=== PATIENT | male | born 1995 | race Caucasian/White ===

== ENCOUNTER → 2021-03-03 10:58 | Outpatient (BNVA) | payer MEDICAID, SELFPAY | PROVIDERS: PCP Internal Medicine; Visit Provider Orthopaedic Surgery | DX: M79.89 Other specified soft tissue disorders (principal) | CPT/HCPCS: 99202 ==

== ENCOUNTER 2021-04-02 09:13 | Day surgery (SDC) | payer MEDICAID, SELFPAY ==
[2021-03-26 15:26] VITALS: BMI 20.7
--- NOTE | 2021-04-01 09:16 | HO.ANESPROP2 ---
Documented by User: Cass Toribio 04/01/21 09:17 HPI - Anesthesia Eval Consult details Narrative: 26yo M for Right Ring Finger Mass Excision and Biopsy [facility] Active Problems Active Problems: All Active Problems (Updated 03/26/21 @ 15:26 by Madison Coronado) Mass of soft tissue of right upper extremity (Acute) Past Medical History Medical History Anxiety and depression Epilepsy Surgical History Surgical History History of exploratory laparotomy Social History Social History Are you DNR?: No Advance Directives: No Advance Directives Information Provided: No Advance Directives on File: No Recently lost weight without trying: No Eating poorly because of decreased appetite: No Nutrition Risks: No Nutritional Risk Current occupational status: disabled Current occupation: right hand Meds Allergies Allergy/AdvReac Type Severity Reaction Status Date / Time No Known Allergies Allergy Verified 03/26/21 15:11 [No Known Allergies*] Home Medications Medication Instructions Recorded Confirmed Last Taken Type buspirone 5 mg tablet 5 mg PO BID 03/03/21 03/26/21 Unknown History clobazam 10 mg tablet 10 mg PO DAILY 03/03/21 03/26/21 Unknown History divalproex 125 mg tablet,delayed 125 mg PO TID 03/03/21 03/26/21 Unknown History release escitalopram oxalate 5 mg tablet 5 mg PO DAILY 03/03/21 03/26/21 Unknown History lamotrigine 25 mg tablet 25 mg PO Q OTHER DAY 03/03/21 03/26/21 Unknown History Exam Exam Date and Time: April 01, 2021 0916 Height,Weight and Vital Signs: Height 5 ft 10 in Weight 65.771 kg Assessment and Plan Assessment Anesthesia Assessment: Chart Reviewed Documented by User: Candace Ybarra 04/02/21 12:34 [facility] Past Medical History Medical History Anxiety and depression Epilepsy Surgical History Surgical History History of exploratory laparotomy Social History Social History Are you DNR?: No Advance Directives: No Advance Directives Information Provided: No Advance Directives on File: No Recently lost weight without trying: No Eating poorly because of decreased appetite: No Nutrition Risks: No Nutritional Risk Current occupational status: disabled Current occupation: right hand Meds Allergies Allergy/AdvReac Type Severity Reaction Status Date / Time No Known Allergies Allergy Verified 03/26/21 15:11 [No Known Allergies*] Home Medications Medication Instructions Recorded Confirmed Last Taken Type buspirone 5 mg tablet 5 mg PO BID 03/03/21 03/26/21 Unknown History clobazam 10 mg tablet 10 mg PO DAILY 03/03/21 03/26/21 Unknown History divalproex 125 mg tablet,delayed 125 mg PO TID 03/03/21 03/26/21 Unknown History release escitalopram oxalate 5 mg tablet 5 mg PO DAILY 03/03/21 03/26/21 Unknown History lamotrigine 25 mg tablet 25 mg PO Q OTHER DAY 03/03/21 03/26/21 Unknown History Exam Airway Mallampati Class: I TM Dist: >3cm Neck ROM: Full Loose/Missing/Broken Teeth: No Heart: RRR Lungs: CTA Assessment and Plan Assessment Anesthesia Assessment: Anesthesia Plan Discussed and Chart Reviewed Final Anesthetic Review ASA Class: II Final Preanesthetic Review: Meds/Allgs Chart Reviewed, Consent Obtained/Reviewed and Anes Risks/Benef Reviewed Patient Risk: Low Procedure Risk: Low Anesthetic Plan Anesthetic Plan: GA Disposition: Standard PACU
[2021-04-02 09:51] VITALS: BP 113/59; PULSE 73; RESP 16; TEMP 36.7; O2SAT 98
[2021-04-02] MEDS: Lactated Ringers 1,000 ML 100 ML IVCONT (10:09)
--- NOTE | 2021-04-02 12:18 | MHC.SHP ---
Pre-Procedural Eval Section B Chief Complaint: soft tissue disorder Allergies: Allergies Allergy/AdvReac Type Severity Reaction Status Date / Time No Known Allergies Allergy Verified 03/26/21 15:11 [No Known Allergies*] Plan I have reviewed the history and physical and performed a pertinent physical examination on my patient. No changes have occurred unless specified.
--- NOTE | 2021-04-02 12:19 | W.PM.OPN ---
Operative Note Operative Note Date of Service: 04/02/21 Narrative: Operative Note Narrative: Preop diagnosis: Right ring finger soft tissue mass Postop diagnosis: Same Procedure: Right ring finger soft tissue mass excisional biopsy Surgeon: Kelsi Jackson MD Anesthesia: Mac plus regional block Findings: Mass measured approximately 1 cm in diameter was white shiny and filled with a gritty white material consistent with a epidermal inclusion cyst. Implants: None Tourniquet time: 9 minutes EBL: 5.0 ml Specimen: Right ring finger soft tissue mass sent for histopathology Drains: None Complications: None Disposition: Brought to the recovery room in stable condition Plan: Follow-up in 10-14 days for wound check, suture removal and to check pathology Indications: The patient is a 26-year-old man with a right ring finger soft tissue mass that has grown considerably in the last few months . The risks and benefits of operative treatment, including but not limited to risk of damage to blood vessels, nerves, tendons, infection, recurrence, persistent pain or numbness, incomplete resolution of preoperative symptoms, or need for further surgery were discussed with the patient and they wished to proceed with surgery. Procedure: Once consent was obtained patient was brought back to the operating suite and placed in the operating table in a supine position. . Perioperative antibiotics and anesthesia was administered by the anesthesia team. A tourniquet was applied to the proximal aspect of the right upper extremity and the limb was prepped and draped in a standard surgical fashion. The limb was elevated exsanguinated with Esmarch bandage and the tourniquet inflated to 250 mm of mercury for a total tourniquet time of 9 minutes. I made a Rich is incision over the volar aspect of the right ring finger middle phalanx and PIP joint. The incision was made through the skin to the subcutaneous tissues using a 15. Blade. I then carefully dissected down to the level of the soft tissue mass. It measured approximately 1 cm in diameter and was white and smooth and filled with a white gritty material. This was all consistent potentially with an epidermal inclusion cyst. I carefully dissected the mass free from the surrounding tissues and removed and placed on the back table to be sent for histopathology. At this point the tourniquet was deflated and hemostasis obtained with a brief period of local pressure The wound was copiously irrigated with normal saline. The skin edges were reapproximated with 5-0 nylon suture. A digital block was performed and the wound was infiltrated with some 1% lidocaine with epinephrine for postop pain control and a sterile dressing was applied. The patient appears to have tolerated the procedure well and with no complications. All digits were well vascularized conclusion of the case.
[2021-04-02 13:40] VITALS: BP 101/60; PULSE 58; RESP 16; TEMP 36.8; O2SAT 100
[2021-04-02 13:45] VITALS: BP 104/61; PULSE 60; RESP 16; O2SAT 100
[2021-04-02 13:50] VITALS: BP 103/59; PULSE 63; RESP 16; O2SAT 100
[2021-04-02 13:55] VITALS: BP 107/62; PULSE 75; RESP 16; O2SAT 99
[2021-04-02 14:27] VITALS: TEMP 36.8
== END 2021-04-02 14:52 | disposition home or self-care (01) ==
PROVIDERS: Visit Provider Orthopaedic Surgery
PROC: (CPT 11422; principal; 2021-04-02 11:00)
DX: L72.0 Epidermal cyst (principal); G40.909 Epilepsy, unspecified, not intractable, without status epilepticus; Z79.899 Other long term (current) drug therapy
CPT/HCPCS: 11422; 88304; J0690; J2250; J3010

== ENCOUNTER → 2021-04-13 10:02 | Outpatient (BNVA) | payer MEDICAID, SELFPAY | PROVIDERS: Visit Provider Orthopaedic Surgery | DX: M79.89 Other specified soft tissue disorders (principal) | CPT/HCPCS: 99212 ==

== ENCOUNTER → 2023-03-02 10:39 | Outpatient (BNVA) | payer MEDICAID, SELFPAY | PROVIDERS: Visit Provider Orthopaedic Surgery | DX: M79.89 Other specified soft tissue disorders (principal) | CPT/HCPCS: 99212 ==

== ENCOUNTER → 2023-03-31 05:54 | Day surgery (SDC) | payer MEDICAID, SELFPAY ==
[2023-03-25 19:56] VITALS: BMI 19.5
--- NOTE | 2023-03-30 08:45 | HO.ANESPROP2 ---
HPI - Anesthesia Eval Consult details Narrative: Utox + for PCP DOS. 28yo M for Right Ring finger Excision Mass s/p same 2020 with TIVA Multiple + tox screen [facility] Active Problems Active Problems: All Active Problems (Updated 03/26/21 @ 15:26 by Madison Coronado, RN) Mass of soft tissue of right upper extremity (Acute) Past Medical History Medical History Anxiety and depression Epilepsy Surgical History Surgical History History of exploratory laparotomy Social History Social History (Updated 03/02/23 @ 11:02 by Sierra Thorne Tamela) Patient Tobacco Use Status: Current everyday Tobacco user Tobacco use type: Cigarette Cigarette Packs Per Day: 0.5 Cigarettes Per Day: 10.0 Years Smoked: 13 Smoked in Last 30 Days: Yes Use of substances other than those prescribed or required for medical reasons: Yes Substance Use Type Other:: 2-3 TIMES DAILY Substance Use Frequency: Daily Are you DNR?: No Advance Directives: No Advance Directives Information Provided: Yes Advance Directives on File: No Recently lost weight without trying: No Nutrition Risks: No Nutritional Risk Current occupational status: disabled Current occupation: right hand Meds Allergies Allergy/AdvReac Type Severity Reaction Status Date / Time No Known Allergies Allergy Verified 03/31/23 06:08 [No Known Allergies*] Home Medications Medication Instructions Recorded Confirmed Last Taken Type buspirone 5 mg tablet 15 mg PO BID 03/03/21 03/25/23 03/31/23 05:30 History clobazam 10 mg tablet (Onfi) 10 mg PO BID 03/03/21 03/25/23 03/31/23 05:30 History hydroxyzine pamoate 25 mg capsule 25 mg PO BID PRN anxiety 03/02/23 03/25/23 Unknown History melatonin 5 mg tablet 5 mg PO BEDTIME 03/02/23 03/25/23 Unknown History sertraline 50 mg tablet 50 mg PO DAILY 03/02/23 03/25/23 Unknown History topiramate 50 mg tablet 50 mg PO BID 03/02/23 03/25/23 03/31/23 05:30 History divalproex 500 mg tablet,extended 1,000 mg PO QAM 03/25/23 03/25/2303/31/23 05:30 History release 24 hr Exam Exam Date and Time: March 30, 2023 0845 Height,Weight and Vital Signs: Height 5 ft 10 in Weight 61.689 kg Assessment and Plan Assessment Anesthesia Assessment: Chart Reviewed
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
--- OUTSIDE RECORDS SUMMARY | 2023-03-31 05:56 | XMS_ITS | Continuity of Care Document ---
Author Name Unknown Organization [facility] Address [address] [facility], [address] Floor, [address] [place] [address]- Care Team Providers Care Brass And Wind Instrument Repairer Name Role Phone Randy STEPHEN, Akash Primary Care Physician [phone] En[place] [facility] [place] 02/18/23 - 03/20/23 [facility] [address], [address], [address] [place] [id number] Allergies, Adverse Reactions, Alerts No Known Allergies [...] tablet, 3 Refills, Maintenance, 05/28/22 13:24:00 EDT, [facility] #[id number], 175, cm, 11/16/21 10:25:00 EST, Height Start [...] tablet, 5 Refills, Maintenance, 03/17/23 14:35:00 EDT, [facility] #[id number], dose increase, 175, cm, 01/10/23 11:06:00 EST, Height, 62, kg, 03/11/23 10:43:00 EDT, Dry Weight Start Date: 03/17/23 Stop Date: 09/13/23 Status: Ordered divalproex sodium 500 mg oral tablet, extended release 2 tablet, By Mouth, Daily in AM, # 180 tablet, 5 Refills, Maintenance, 09/29/22 10:01:00 EDT, [facility] #[id number], 175, cm, 07/28/22 10:23:00 EDT, Height Start [...] each, 0 Refills, Maintenance, 01/10/23 12:21:00 EST, [facility] #[id number], ok to sub for any gallon prep, [...] 11 Refills, Maintenance, 10/15/22 12:41:00 EST, Tablet, [facility] #[id number], 175, cm, 07/28/22 10:23:00 EDT, Height Start [...] Team Personnel Name: Kimo Batres MD Position: [facility] Psychiatry MD Member Role: Lifetime Consulting Physician Address: Address: [address] [place] [id number]- Name: Akash Padilla MD Position: [facility] Outreach Member Role: PCP Address: Address: [address] [place] [address]- Name: Carolyn Ferrara RN Position: [facility] AMB Nurse Member Role: Primary Care Nurse Care Team Related Persons Name: ROBBIE ST Address: [address] [address] Name: SMITHA BRAXTON Address: [address] [address] Name: LESTER FELTON
--- OUTSIDE RECORDS SUMMARY | 2023-03-31 05:56 | XMS_ITS | Continuity of Care Document ---
Author Name Unknown Organization [facility] Address [address] [facility], [address] Floor, [address] [place] [address]- Care Team Providers Care Jack Strip Assembler Name Role Phone Randy STEPHEN, Akash Primary Care Physician [phone] [place] [facility] [place] [facility] [address], [address], [address] [place] [id number] Allergies, Adverse Reactions, Alerts No Known Allergies [...] tablet, 3 Refills, Maintenance, 05/28/22 13:24:00 EDT, [facility] #[id number], 175, cm, 11/16/21 10:25:00 EST, Height Start [...] tablet, 5 Refills, Maintenance, 03/17/23 14:35:00 EDT, [facility] #[id number], dose increase, 175, cm, 01/10/23 11:06:00 EST, Height, 62, kg, 03/11/23 10:43:00 EDT, Dry Weight Start Date: 03/17/23 Stop Date: 09/13/23 Status: Ordered divalproex sodium 500 mg oral tablet, extended release 2 tablet, By Mouth, Daily in AM, # 180 tablet, 5 Refills, Maintenance, 09/29/22 10:01:00 EDT, [facility] #[id number], 175, cm, 07/28/22 10:23:00 EDT, Height Start [...] each, 0 Refills, Maintenance, 01/10/23 12:21:00 EST, [facility] #[id number], ok to sub for any gallon prep, [...] 10/15/22 12:41:00 EST, Tablet, [facility] #[id number], 175, cm, 07/28/22 10:23:00 EDT, Height Start [...] Team Personnel Name: Kimo Batres MD Position: [facility] Psychiatry MD Member Role: Lifetime Consulting Physician Address: Address: [address] [place] [address]- Name: Akash Padilla MD Position: [facility] Outreach Member Role: PCP Address: Address: [address] [place] [address]- Name: Carolyn Ferrara RN Position: [facility] AMB Nurse Member Role: Primary Care Nurse Care Team Related Persons Name: ROBBIE ST Address: home [address] [address] Name: SMITHA BRAXTON Address: home [address] [address] Name: LESTER FELTON
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
[2023-03-31 06:25] VITALS: BP 112/54; PULSE 68; RESP 15; TEMP 36.7; O2SAT 99
[2023-03-31 06:38] LABS: Amphetamine Screen Urine Not Detected (Not Detect); Barbiturates, Urine Not Detected (Not Detect); Benzodiazepines Screen Urine POSITIVE (Not Detect); Cannabinoid Screen Urine POSITIVE (Not Detect); Cocaine Screen Urine Not Detected (Not Detect); Fentanyl, urine Not Detected (Not Detect); Opiate Screen Urine Not Detected (Not Detect); Phencyclidine Screen Urine POSITIVE (Not Detect)
[2023-03-31] MEDS: Lactated Ringers 1,000 ML 100 ML IVCONT (06:42)
--- NOTE | 2023-03-31 08:05 | PC.NURSE ---
pcp found in urine tox. surgery cancelled by surgeon and anesthesia at bedside. to call office to reschedule.
== END ==
PROVIDERS: Nurse Practitioner; PCP Pediatrics; Visit Provider Orthopaedic Surgery
DX: M79.89 Other specified soft tissue disorders (principal); Z53.09 Procedure and treatment not carried out because of other contraindication; R82.5 Elevated urine levels of drugs, medicaments and biological substances
CPT/HCPCS: 80307; J0690; J2795

== ENCOUNTER → 2023-05-17 15:18 | Outpatient (BNVA) | payer MEDICAID, SELFPAY | PROVIDERS: PCP Pediatrics; Visit Provider Orthopaedic Surgery | DX: M79.89 Other specified soft tissue disorders (principal) | CPT/HCPCS: 99212 ==

== ENCOUNTER 2023-05-19 06:12 | Day surgery (SDC) | payer MEDICAID, SELFPAY ==
--- NOTE | 2023-05-17 14:50 | HO.ANESPROP2 ---
Documented by User: Cass Toribio NP 05/17/23 14:51 HPI - Anesthesia Eval Consult details Narrative: 28yo M for Right Ring finger Excision Mass s/p same 2020 with TIVA Multiple + tox screen, Utox + for PCP DOS. PMFSH Active Problems Active Problems: All Active Problems (Updated 05/13/23 @ 14:45 by Madison Coronado RN) Mass of soft tissue of right upper extremity (Acute) Past Medical History Medical History Anxiety and depression Epilepsy History of tremor Weight loss Surgical History Surgical History History of excision of mass History of exploratory laparotomy Social History Social History Patient Tobacco Use Status: Current everyday Tobacco user Tobacco use type: Cigarette and Smokeless Tobacco Cigarette Packs Per Day: 0.5 Cigarettes Per Day: 10.0 Years Smoked: 13 Second Hand Smoke Exposure: No Use of substances other than those prescribed or required for medical reasons: Yes Substance Use Frequency: Daily Are you DNR?: No Advance Directives: No Advance Directives Information Provided: Yes Advance Directives on File: No Current occupational status: disabled Current occupation: right hand Meds Allergies Allergy/AdvReac Type Severity Reaction Status Date / Time No Known Allergies Allergy Verified 05/17/23 15:44 [No Known Allergies*] Home Medications Medication Instructions Recorded Confirmed Last Taken Type clobazam 10 mg tablet (Onfi) 10 mg PO BID 03/03/21 05/13/23 05/19/23 History hydroxyzine pamoate 25 mg capsule 25 mg PO BID PRN anxiety 03/02/23 05/13/23 Unknown History melatonin 5 mg tablet 5 mg PO BEDTIME 03/02/23 05/13/23 Unknown History sertraline 50 mg tablet 50 mg PO DAILY 03/02/23 05/13/23 05/19/23 History topiramate 50 mg tablet 50 mg PO BID 03/02/23 05/13/23 05/19/23 History divalproex 500 mg tablet,extended 1,000 mg PO QAM 03/25/23 05/13/23 05/19/23 History release 24 hr buspirone 15 mg tablet 15 mg PO TID 05/13/23 05/13/23 05/19/23 History Exam Exam Date and Time: May 17, 2023 1450 Assessment and Plan Assessment Anesthesia Assessment: Chart Reviewed Documented by User: Briseida Gonzales MD 05/19/23 08:47 PMFSH Past Medical History Medical History Anxiety and depression Epilepsy History of tremor Weight loss Family History Family history of problems with anesthesia: No Surgical History Surgical History History of excision of mass History of exploratory laparotomy History of Problems with Anesthesia: No Social History Social History Patient Tobacco Use Status: Current everyday Tobacco user Tobacco use type: Cigarette and Smokeless Tobacco Cigarette Packs Per Day: 0.5 Cigarettes Per Day: 10.0 Years Smoked: 13 Second Hand Smoke Exposure: No Use of substances other than those prescribed or required for medical reasons: Yes Substance Use Frequency: Daily Are you DNR?: No Advance Directives: No Advance Directives Information Provided: Yes Advance Directives on File: No Current occupational status: disabled Current occupation: right hand Meds Allergies Allergy/AdvReac Type Severity Reaction Status Date / Time No Known Allergies Allergy Verified 05/17/23 15:44 [No Known Allergies*] Home Medications Medication Instructions Recorded Confirmed Last Taken Type clobazam 10 mg tablet (Onfi) 10 mg PO BID 03/03/21 05/13/23 05/19/23 History hydroxyzine pamoate 25 mg capsule 25 mg PO BID PRN anxiety 03/02/23 05/13/23 Unknown History melatonin 5 mg tablet 5 mg PO BEDTIME 03/02/23 05/13/23 Unknown History sertraline 50 mg tablet 50 mg PO DAILY 03/02/23 05/13/23 05/19/23 History topiramate 50 mg tablet 50 mg PO BID 03/02/23 05/13/23 05/19/23 History divalproex 500 mg tablet,extended 1,000 mg PO QAM 03/25/23 05/13/23 05/19/23 History release 24 hr buspirone 15 mg tablet 15 mg PO TID 05/13/23 05/13/23 05/19/23 History Exam Airway Mallampati Class: II TM Dist: >3cm Neck ROM: Full Heart: rrr Lungs: cta Other: pt appears a little sedated, daily cigarettes and marihuana and alchohol use since age 14 per his report Assessment and Plan Final Anesthetic Review Family History of Problems with Anesthesia: No History of Problems with Anesthesia: No NPO: Yes ASA Class: II Final Preanesthetic Review: No Changes in Pt Med Stat, Meds/Allgs Chart Reviewed, Consent Obtained/Reviewed and Anes Risks/Benef Reviewed Patient Risk: Intermediate Procedure Risk: Low Anesthetic Plan Anesthetic Plan: GA Disposition: Standard PACU
[2023-05-19 06:27] VITALS: BMI 19.5
[2023-05-19 06:39] VITALS: BP 104/62; PULSE 69; RESP 16; TEMP 36.2; O2SAT 98
[2023-05-19 06:45] LABS: Amphetamine Screen Urine Not Detected (Not Detect); Barbiturates, Urine Not Detected (Not Detect); Benzodiazepines Screen Urine POSITIVE (Not Detect); Cannabinoid Screen Urine POSITIVE (Not Detect); Cocaine Screen Urine Not Detected (Not Detect); Fentanyl, urine Not Detected (Not Detect); Opiate Screen Urine Not Detected (Not Detect); Phencyclidine Screen Urine Not Detected (Not Detect)
[2023-05-19] MEDS: Lactated Ringers 1,000 ML 100 ML IVCONT (07:01)
[2023-05-19 08:45] VITALS: BP 127/60; PULSE 92; RESP 17; TEMP 36.6; O2SAT 100
[2023-05-19 08:50] VITALS: BP 114/29; PULSE 82; RESP 18; O2SAT 98
[2023-05-19 08:55] VITALS: BP 121/55; PULSE 75; RESP 16; O2SAT 98
[2023-05-19 09:00] VITALS: BP 128/69; PULSE 88; RESP 16; O2SAT 98
--- NOTE | 2023-05-19 09:11 | MHC.SHP ---
Pre-Procedural Eval Section A Date of Service: 05/19/23 The patient is an INPATIENT: No Changes since office visit: No Cold of Flu in the past 2 weeks, No New Medical Problems, No Changes in Medication and No Patient answered all questions The History & Physical has been completed within 30 days and I have reviewed it.: Yes Section B Chief Complaint: Finger mass, right Allergies: Allergies Allergy/AdvReac Type Severity Reaction Status Date / Time No Known Allergies Allergy Verified 05/17/23 15:44 [No Known Allergies*] Plan I have reviewed the history and physical and performed a pertinent physical examination on my patient. No changes have occurred unless specified. Time Spent With Patient Time: Total time managing care of this patient today ____ minutes.
--- NOTE | 2023-05-19 09:11 | W.PM.OPN ---
Operative Note Operative Note Date of Service: 05/19/23 Narrative: Operative Note Narrative: Preop diagnosis: 1. Right ring finger soft tissue mass Postop diagnosis: Same Procedure: 1. Right ring finger soft tissue mass excisional biopsy Surgeon: Kelsi Jackson MD Anesthesia: General Anesthesia Findings: a 9 mm diameter white Spherical soft tissue mass was removed from its attachment on to the right ring finger flexor tendon sheath at about the A4 pham level. Implants: none Tourniquet time: 9 minutes EBL: 5.0 ml Specimen: right ring finger mass to histopathology Drains: None Complications: None Disposition: Brought to the recovery room in stable condition Plan: Follow-up in 10-14 days for wound check, suture removal and to check pathology Indications: The patient is a 28 year old man with a right ring finger volar soft tissue mass . The risks and benefits of operative treatment, including but not limited to risk of damage to blood vessels, nerves, tendons, infection, recurrence, persistent pain or numbness, incomplete resolution of preoperative symptoms, or need for further surgery were discussed with the patient and they wished to proceed with surgery. Procedure: Once consent was obtained patient was brought back to the operating suite and placed in the operating table in a supine position. . Perioperative antibiotics and anesthesia was administered by the anesthesia team. A tourniquet was applied to the proximal aspect of the right upper extremity and the limb was prepped and draped in a standard surgical fashion. The limb was elevated exsanguinated with Esmarch bandage and the tourniquet inflated to 250 mm of mercury for a total tourniquet time of 9 minutes. a 1 cm diagonal incision was made over the right ring finger over the volar aspect of the middle phalanx centered over the soft tissue mass. Incision was made through the skin the subcutaneous tissues. Then carefully dissected down to the mass which was approximately 9 mm in diameter spherical and white. It was attached to the flexor tendon sheath at the A4 pham level. The neurovascular bundles were protected and I carefully dissected the mass free from the A4 pham of the flexor tendon sheath. The mass was carefully dissected free from the A4 pham and placed on the back table to be sent for histopathology. At this point the tourniquet was deflated and hemostasis obtained with a brief period of local pressure and bipolar electrocautery. The Wound was copiously irrigated with normal saline. The skin edges were reapproximated with some 5 0 Prolene suture material and a sterile dressing was applied. The patient appears to have tolerated procedure well no complications. All digits were well vascularized the conclusion of the case.
[2023-05-19 09:15] VITALS: BP 110/64; PULSE 75; RESP 16; TEMP 36.6; O2SAT 100
== END 2023-05-19 09:47 | disposition home or self-care (01) ==
PROVIDERS: Nurse Practitioner; PCP Pediatrics; Visit Provider Orthopaedic Surgery
PROC: (CPT 11421; principal; 2023-05-19 07:30)
DX: M79.89 Other specified soft tissue disorders (principal); L72.0 Epidermal cyst; R82.5 Elevated urine levels of drugs, medicaments and biological substances; G40.909 Epilepsy, unspecified, not intractable, without status epilepticus; F41.8 Other specified anxiety disorders; Z79.899 Other long term (current) drug therapy; F12.90 Cannabis use, unspecified, uncomplicated; F17.290 Nicotine dependence, other tobacco product, uncomplicated; F17.210 Nicotine dependence, cigarettes, uncomplicated
CPT/HCPCS: 11421; 80307; 88304; J0690; J1100; J2250; J2405; J2795; J3010

== ENCOUNTER → 2023-06-01 14:24 | Outpatient (BNVA) | payer MEDICAID, SELFPAY | PROVIDERS: PCP Registered Nurse; Visit Provider Orthopaedic Surgery ==

== ENCOUNTER 2023-09-30 14:38 | Outpatient (REF) | payer MEDICAID, SELFPAY ==
[2023-09-30 16:23] LABS: Alanine Aminotransferase 8 U/L (0-40); Albumin Level 4.5 g/dL (3.5-5.0); Alkaline Phosphatase 38 U/L (39-117); Aspartate Amino Transferase 11 U/L (5-37); Bilirubin Direct 0.2 mg/dL (0.0-0.5); Bilirubin Total 0.4 mg/dL (0.0-1.0); Total Protein 7.3 g/dL (6.5-8.0)
[2023-10-04 07:39] LABS: Topiramate 11.1 mcg/mL (see note)
[2023-10-04 10:09] LABS: Triiodothyronine T3 Reverse 13 ng/dL (8-25)
== END 2023-09-30 14:39 | disposition home or self-care (01) ==
LOC: HO.LAB 14:38
PROVIDERS: PCP Registered Nurse; Visit Provider Psychiatry & Neurology Neurology
DX: G40.909 Epilepsy, unspecified, not intractable, without status epilepticus (principal)
CPT/HCPCS: 36415; 80076; 80164; 80201; 84436; 84482

== ENCOUNTER 2023-11-22 11:44 | Outpatient (REF) | payer MEDICAID, SELFPAY ==
[2023-11-22 14:27] LABS: Vitamin D 25-OH Total 12.4 ng/mL (>30)
[2023-11-22 14:46] LABS: CT PCR NOT DETECTED (Not Detect.); NG PCR NOT DETECTED (Not Detect.)
[2023-11-22 14:57] LABS: Syphilis Screen Nonreactive (Nonreactive)
[2023-11-23 08:09] LABS: HBc Num1 0.13 S/CO (0.00-0.79); HBsAGNum1 0.27 S/CO (0.00-0.99); HIV AB/AG Nonreactive (Nonreactive); HIV Num 1 0.08 S/CO (0.00-0.99); Hepatitis B Core Antibody Nonreactive (Nonreactive); Hepatitis B Surface Antigen Negative (Negative); ~HepC Num1 0.14 S/CO (0.00-0.79); ~Hepatitis B Surface Antibody REACTIVE (Nonreactive); ~Hepatitis C Antibody Nonreactive (Nonreactive)
== END 2023-11-22 11:45 | disposition home or self-care (01) ==
LOC: HO.HHCL 11:44
PROVIDERS: Visit Provider Family Medicine
DX: Z11.3 Encounter for screening for infections with a predominantly sexual mode of transmission (principal); Z11.4 Encounter for screening for human immunodeficiency virus [HIV]; E55.9 Vitamin D deficiency, unspecified
CPT/HCPCS: 0353U; 36415; 82306; 86704; 86706; 86780; 86803; 87340; 87389

== ENCOUNTER 2024-05-13 19:46 | Emergency (ER) | payer MEDICAID, SELFPAY ==
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
[2024-05-13 19:49] VITALS: BP 132/56; PULSE 85; RESP 20; TEMP 36.6; O2SAT 100; BMI 19.0
--- NOTE | 2024-05-13 19:49 | ED.LOWEXIN ---
HPI - Extremity Injury (Lower) General Chief Complaint: Extremity Injury, Lower Stated Complaint: right foot injury/basketball Time Seen by Provider: 05/13/24 19:55 Source: patient Mode of arrival: ambulatory Limitations: no limitations History of Present Illness ED Provider: Dr. Carolyn Fuller HPI Narrative: patient comes to the emergency room complaining of right-sided foot pain on the dorsum. Patient states that 5 days ago, patient was jumping up to grab a ball while playing basketball, patient states that when he landed, his foot bent awkwardly, it was the foot itself not the ankle. Since then patient has been putting weight on it, walking but still hurts. Patient has been taking ibuprofen intermittently. Related Data Home Medications ?Medication ?Instructions ?Recorded ?Confirmed clobazam 10 mg tablet (Onfi) 10 mg PO BID 03/03/21 05/13/23 hydroxyzine pamoate 25 mg capsule 25 mg PO BID PRN anxiety 03/02/23 05/13/23 melatonin 5 mg tablet 5 mg PO BEDTIME 03/02/23 05/13/23 sertraline 50 mg tablet 50 mg PO DAILY 03/02/23 05/13/23 topiramate 50 mg tablet 50 mg PO BID 03/02/23 05/13/23 divalproex 500 mg tablet,extended 1,000 mg PO QAM 03/25/23 05/13/23 release 24 hr buspirone 15 mg tablet 15 mg PO TID 05/13/23 05/13/23 Previous Rx's ?Medication ?Instructions ?Recorded hydrocodone 5 mg-acetaminophen 325 1 tab PO Q4-6H PRN pain #5 tabs 05/19/23 mg tablet Allergies Allergy/AdvReac Type Severity Reaction Status Date / Time No Known Allergies Allergy Verified 05/13/24 19:51 [No Known Allergies*] Review of Systems Review of Systems: Constitutional : No Weight loss, No Fever, No Chills, No Night Sweats, No Fatigue, No Malaise ENT/Mouth : No Hearing loss, No Ear Pain, No Nasal Congestion, No Sinus Pain, No Hoarseness, No sore throat, No Rhinorrhea, No Swallowing Difficulty Eyes: No Eye Pain, No Swelling, No Redness, No Foreign Body, No Discharge, No Vision Changes Cardiovascular : No Chest Pain, No SOB, No Dyspnea on Exertion, No Orthopnea, No Edema, No Palpitations Respiratory : No Cough, No Sputum, No Wheezing, No Smoke Exposure, No Dyspnea Gastrointestinal : No Nausea, No Vomiting, No Diarrhea, No Constipation, No abdominal Pain, No Hematochezia, No Melena Genitourinary : no irregular bleeding, No Dysuria, No Urinary Frequency, No Hematuria, No Urinary Incontinence, No Urgency, No Flank Pain, No Urinary Flow Changes, No Hesitancy Musculoskeletal : Complaining of right foot pain No Myalgias, No Joint Swelling Skin : No Skin Lesions, No rash Neuro : No Weakness, No Numbness, No Paresthesias, No Loss of Consciousness, No Dizziness, No Headache Psych : No Anxiety/Panic, No Depression, No SI/HI/AH/VH, No Social Issues, Heme/Lymph: No Bruising, No Bleeding,No Lymphadenopathy Endocrine : No Polyuria, No Polydipsia, No Temperature Intolerance PMF Past Medical History Medical History Weight loss History of tremor Anxiety and depression Epilepsy Surgical History History of excision of mass History of exploratory laparotomy Social History Social History Patient Tobacco Use Status: Current everyday Tobacco user Tobacco use type: Cigarette and Smokeless Tobacco Cigarette Packs Per Day: 0.5 Cigarettes Per Day: 10.0 Years Smoked: 13 Smoked in Last 30 Days: Yes Second Hand Smoke Exposure: No Use of substances other than those prescribed or required for medical reasons: No Advance Directives: No Advance Directives Information Provided: No Do you have a plan to hurt others: No Plan Current occupational status: disabled Current occupation: right hand Physical Exam Vital Signs: Vital Signs: Last Vital Signs Temp 97.9 F 05/13/24 19:49 Pulse 85 05/13/24 19:49 Resp 20 05/13/24 19:49 BP 132/56 L 05/13/24 19:49 Pulse Ox 100 05/13/24 19:49 O2 Del Method Room Air 05/13/24 19:49 BMI result Body Mass Index 19.0 Const: Other: Appearance: Alert. Oriented X3. No acute distress. Eyes: Pupils equal, round and reactive to light. ENT: Pharynx normal. Neck: Normal inspection. Neck supple. No lymph nodes noted. No crepitus CVS: Normal heart rate and rhythm. Pulses normal. Normal S1 and S2 Respiratory: No respiratory distress. Breath sounds normal. No Wheezing. No rales Abdomen: Soft and nontender. No rigidity. No distention. Skin: Skin warm and dry. Normal skin color. Normal skin turgor. Extremities: No lower extremity edema. No Lacerations. No Rash no swelling around the ankle, pain to palpation over the dorsum of the foot, patient ambulatory with fairly stable gait. No ecchymosis, no obvious deformity Neuro: Oriented X 3. No motor deficit. No sensory deficit. Moving all extremities. No slurred speech. CN 2 through 12 grossly intact Psych: calm, cooperative, normal affect Course Course Course Narrative: This is a Rapid Medical Examination (RME) performed by Herbert Salazar PA-C in triage. Full HPI, ROS, assessment and treatment plan per primary provider in the Main ED. 29 yo male here for eval of right foot and ankle pain s/p injury while playing basketball in [place] 5 days ago. reports jumping and on landing, his toes folded under his foot. reports continued pain to the top of his foot and ankle. has been taking motrin and using icy hot with minimal relief. noted swelling to dorsal aspect of right foot and ankle. no overlying skin changes. no obvious deformity. 2+ p/dp pulses. Plan: xrs Medical Decision Making Medical Decision Making [facility] Narrative: - patient ambulatory - my interpretation of x-ray: No acute fracture or dislocation - x-rays of the foot : no fracture Differential Diagnosis Differential Diagnoses: The differential diagnosis associated with the presentation includes ( ankle contusion, dislocation, fracture, sprain) Independent Interpretation I performed an independent interpretation of an: Plain X-Ray Radiology Impression Discussion of test interpretation with radiology: I have reviewed the radiologist's reading. Radiologist Impression: Negative radiographs of the right ankle and foot. Discharge Plan Discharge Clinical Impression: Ankle sprain Patient Disposition: Home, Self-Care Instructions: Ankle Sprain (ED) Additional Instructions: Please follow-up with your primary care physician tomorrow. If you have any worsening or new symptoms, please return to the emergency room or call 911 Prescriptions: No Action divalproex 500 mg tablet extended release 24 hr 1,000 mg PO QAM buspirone 15 mg tablet 15 mg PO TID hydrocodone-acetaminophen 5-325 mg tablet 1 tab PO Q4-6H PRN (Reason: pain) Qty: 5 0RF Rx Instructions: Partial Fill upon patient request. clobazam [Onfi] 10 mg tablet 10 mg PO BID sertraline 50 mg tablet 50 mg PO DAILY topiramate 50 mg tablet 50 mg PO BID melatonin 5 mg tablet 5 mg PO BEDTIME hydroxyzine pamoate 25 mg capsule 25 mg PO BID PRN (Reason: anxiety) Print Language: Slovak
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
--- OUTSIDE RECORDS SUMMARY | 2024-05-13 20:27 | XMS_ITS | Continuity of Care Document ---
Author Organization [facility] Address [address] [place] [address]- Care Team Providers Care Quality Assurance Supervisor Final Name Role Phone Akash Padilla MD Primary Care Physician Encounter [facility] [place] Date(s): 07/21/23 - 08/20/23 [facility] [address] [place] [id number]- Attending Physician: Miguel Piña Admitting Physician: Miguel Piña Referring Physician: AdmtrMiguel Allergies, Adverse Reactions, Alerts No Known Allergies Immunizations Given and Recorded Vaccine Date Status Refusal Reason pneumococcal 23-valent vaccine 12/24/15 Given influenza virus vaccine, inactivated 12/24/15 Give n Medications Ativan 1 mg oral tablet See Instructions, 1 tablet By Mouth prn for seizure. MassPat checked, # 12 tablet, 3 Refills, Maintenance, 05/28/22 13:24:00 EDT, [facility] #[id number], 175, cm, 11/16/21 10:25:00 EST, Height Start [...] day, # 120 tablet, 5 Refills, Maintenance, 07/12/23 10:36:00 EDT, [facility] #[id number], dose increase, 175, cm, 01/10/23 11:06:00 EST, Height, 62, kg, 03/11/23 10:43:00 EDT, Dry Weight Start Date: 07/12/23 Stop Date: 01/08/24 Status: Ordered divalproex sodium 500 mg oral tablet, extended release 2 tablet, By Mouth, Daily in AM, # 180 tablet, 5 Refills, Maintenance, 07/12/23 10:36:00 EDT, [facility] #[id number], 175, cm, 01/10/23 11:06:00 EST, Height, 62, kg, 03/11/23 10:43:00 EDT, Dry Weight Start Date: 07/12/23 Stop Date: 01/02/25 Status: Ordered Ensure Nutritional Drink Ensure Nutritional [...] each, 0 Refills, Maintenance, 01/10/23 12:21:00 EST, [facility] #[id number], ok to sub for any gallon prep, [...] day, # 180 tablet, 5 Refills, Maintenance, 07/12/23 10:36:00EDT, Tablet, [facility] #[id number], dose increase, 175, cm, 01/10/23 11:06:00 EST, Height, 62, kg, 03/11/23 10:43:00 EDT, Dry Weight Start Date: 07/12/23 Status: Ordered Problem List Condition Confirmation Course [...] Name: Kimo Batres MD Position: [facility] Physician - Behavioral Health Member Role: Lifetime Consulting Physician Address: Address: [address] [place] [id number]- Name: Akash Padilla MD Position: [facility] Outreach Member Role: PCP Address: Address: [address] [place] [address]- Name: Carolyn Ferrara RN Position: [facility] AMB Nurse Member Role: Primary Care Nurse Care Team Related Persons Name: ROBBIE ST Address: [address] [address] Name: SMITHA BRAXTON Address: home [address] [address] Name: LESTER FELTON
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
--- OUTSIDE RECORDS SUMMARY | 2024-05-13 20:28 | XMS_ITS | Continuity of Care Document ---
Author Organization [facility] Address [address] [facility], [address] d Floor, [address] [place] [address]- Care Team Providers Care Molded Rubber Goods Cutter Name Role Phone Randy STEPHEN, Akash Primary Care Physician Encounter [facility] Date(s): 10/27/23 - 11/26/23 [facility] [address], [address], [address] [place] [address]- Referring Physician: Feroz STEPHEN , Shyann Allergies, Adverse Reactions, Alerts No Known Allergies Immunizations Given and Recorded Vaccine Date Status Refusal Reason pneumococcal 23-valent vaccine 12/24/15 Given influenza virus vaccine, inactivated 12/24/15 Give n Medications Ativan 1 mg oral tablet See Instructions, 1 tablet By Mouth prn for seizure. MassPat checked, # 12 tablet, 3 Refills, Maintenance, 05/28/22 13:24:00 EDT, [facility] #[id number], 175, cm, 11/16/21 10:25:00 EST, Height Start [...] tablet, 5 Refills, Maintenance, 10/27/23 15:36:00 EST, [facility] #[id number], 175, cm, 07/21/23 11:33:00 EDT, Height, 62, kg, 03/11/23 10:43:00 EDT, Dry Weight Start Date: 10/27/23 Stop Date: 04/24/24 Status: Ordered divalproex sodium 500 mg oral tablet, extended release 2 tablet, By Mouth, Daily in AM, # 180 tablet, 5 Refills, Maintenance, 07/12/23 10:36:00 EDT, [facility] #[id number], 175, cm, 01/10/23 11:06:00 EST, Height, 62, [...] each, 0 Refills, Maintenance, 01/10/23 12:21:00 EST, [facility] #[id number], ok to sub for any gallon prep, [...] Maintenance, 07/12/23 10:36:00EDT, Tablet, [facility] #[id number], dose increase, 175, cm, 01/10/23 11:06:00 EST, [...] Team Personnel Name: Kimo Batres MD Position: [facility] Physician - Behavioral Health Member Role: Lifetime Consulting Physician Address: Address: [address] [place] [address]- Name: Akash Padilla MD Position: [facility] Outreach Member Role: PCP Address: Address: [address] [place] [address]- Name: Carolyn Ferrara RN Position: [facility] AMB Nurse Member Role: Primary Care Nurse Care Team Related Persons Name: ROBBIE ST Address: home [address] [address] Name: SMITHA BRAXTON Address: [address] [address] Name: LESTER FELTON
--- OUTSIDE RECORDS SUMMARY | 2024-05-13 20:28 | XMS_ITS | Continuity of Care Document ---
Author Organization [facility] Address [address] [facility], [address] d Floor, [address] [place] [address]- Care Team Providers Care Clinical Quality Assurance Specialist Name Role Phone Akash Padilla MD Primary Care Physician [phone] Encounter [facility] Date(s): 07/12/23 - 08/11/23 [facility] [address], [address], [address] [place] [id number] Attending Physician: Admrosa maria, Miguel Admitting Physician: Admtr, [id number] Referring Physician: Admtr, [id number] Allergies, Adverse Reactions, Alerts No Known Allergies Immunizations Given and Recorded Vaccine Date Status Refusal Reason pneumococcal 23-valent vaccine 12/24/15 Given influenza virus vaccine, inactivated 12/24/15 Give n Medications Ativan 1 mg oral tablet See Instructions, 1 tablet By Mouth prn for seizure. MassPat checked, # 12 tablet, 3 Refills, Maintenance, 05/28/22 13:24:00 EDT, [facility] #[id number], 175, cm, 11/16/21 10:25:00 EST, Height Start [...] tablet, 5 Refills, Maintenance, 07/12/23 10:36:00 EDT, [facility] #[id number], dose increase, 175, cm, 01/10/23 11:06:00 EST, Height, 62, kg, 03/11/23 10:43:00 EDT, Dry Weight Start Date: 07/12/23 Stop Date: 01/08/24 Status: Ordered divalproex sodium 500 mg oral tablet, extended release 2 tablet, By Mouth, Daily in AM, # 180 tablet, 5 Refills, Maintenance, 07/12/23 10:36:00 EDT, [facility] #[id number], 175, cm, 01/10/23 11:06:00 EST, Height, 62, [...] each, 0 Refills, Maintenance, 01/10/23 12:21:00 EST, [facility] #[id number], ok to sub for any gallon prep, [...] tablet, 5 Refills, Maintenance, 07/12/23 10:36:00EDT, Tablet, [facility] #[id number], dose increase, 175, cm, 01/10/23 11:06:00 EST, [...] Team Personnel Name: Kimo Batres MD Position: [facility] Physician - Behavioral Health Member Role: Lifetime Consulting Physician Address: Address: [address] [place] [address]- Name: Akash Padilla MD Position: [facility] Outreach Member Role: PCP Address: Address: [address] [place] [address]- Name: Carolyn Ferrara RN Position: [facility] AMB Nurse Member Role: Primary Care Nurse Care Team Related Persons Name: ROBBIE ST Address: home [address] [address] Name: SMITHA BRAXTON Address: home [address] [address] Name: LESTER FELTON
[2024-05-13 21:08] VITALS: BP 128/58; PULSE 80; RESP 20; TEMP 36.6; O2SAT 100
== END 2024-05-13 21:09 | disposition home or self-care (01) ==
PROVIDERS: Emergency Provider Emergency Medicine; PCP Family Medicine
DX: S93.401A Sprain of unspecified ligament of right ankle, initial encounter (principal); X50.1XXA Overexertion from prolonged static or awkward postures, initial encounter; Y93.67 Activity, basketball; Y92.9 Unspecified place or not applicable; Y99.9 Unspecified external cause status
CPT/HCPCS: 73610; 73630; 99283; 99284

== ENCOUNTER 2024-06-08 11:55 | Outpatient (REF) | payer MEDICAID, SELFPAY ==
--- NOTE | ~2024-06-08 | XR_ITS ---
EXAMINATION: XR HAND, RIGHT CLINICAL INFORMATION: Injury. COMPARISON: None available. TECHNIQUE: PA, lateral, and oblique views of the right hand. FINDINGS: The bones and soft tissues are normal. No fracture. Alignment is anatomic. Joint spaces are maintained. No erosions or soft tissue calcifications. XR/XR hand RT min 3V IMPRESSION: Normal right hand.
== END 2024-06-08 11:56 | disposition home or self-care (01) ==
LOC: HO.HHCX 11:55
PROVIDERS: Visit Provider Student in an Organized Health Care Education/Training Program
DX: M79.644 Pain in right finger(s) (principal)
CPT/HCPCS: 73130

== ENCOUNTER 2024-07-09 08:33 | Outpatient (REF) | payer MEDICAID, SELFPAY ==
[2024-07-09 11:27] LABS: Anion Gap 12 (12-20); Blood Urea Nitrogen 22 mg/dL (9-16); Calcium 9.4 mg/dL (8.4-10.2); Carbon Dioxide 23 mmol/L (22-29); Chloride 112 mmol/L (96-108); Estimated Glomerular Filt Rate > 60; Glucose Random 77 mg/dL (60-115); Potassium 3.9 mmol/L (3.3-5.1); Sodium 143 mmol/L (135-145)
[2024-07-09 11:48] LABS: Vitamin D 25-OH Total 50.4 ng/mL (>30)
[2024-07-09 11:54] LABS: Parathyroid Hormone Intact 19.5 pg/mL (8.7-77.1)
== END 2024-07-09 08:34 | disposition home or self-care (01) ==
LOC: HO.HHCL 08:33
PROVIDERS: Visit Provider Family Medicine
DX: E55.9 Vitamin D deficiency, unspecified (principal)
CPT/HCPCS: 36415; 80048; 82306; 83970

== ENCOUNTER 2025-04-25 12:35 | Outpatient (REF) | payer MEDICAID, SELFPAY ==
--- OUTSIDE RECORDS SUMMARY | 2025-04-25 12:37 | XMS_ITS | Encounter Summary ---
Author Organization [facility] [facility] Address [address] [facility] 7t [place] [address] Care Team Providers Care Medication Specialist Name Role Phone Shyann Redman MD Primary Care Provider [phone] Encounter Details Date Type Department Care Team ([facility] st Contact Info) Description 11/23/2023 Orders Only [facility] [address] [place], [place] [phone] Shyann Redman MD [address] [place], [place] [phone] Social History Tobacco Use Types Packs/Day Years Used Date Smoking Tobacco: Every Day Cigarettes Smokeless Tobacco: Never Alcohol Use Standard Drinks/Week Comments Not Currently 0 (1 standard drink = 0.6 oz pur e alcohol) Depression Answer Date Recorded Patient Health Questionnaire-9 Score 10 11/22/2023 Patient Health Questionnaire-9 Score 10 11/22/2023 Last PHQ-9: Questionnaire Data Not on file 1 01/23/2023 Housing Stability Answer Date Recorded What is your housing situation today? I have karen willingham 09/20/[address] you li ve. Do you have problems with any of the following? None of the above 09/20/2023 Food Insecurity Answer Date Recorded Within the past 12 months, y ou worried that your food would run out before you got money to buy more: Never True 09/20/2023 Within the past 12 months,th e food you bought just didn't last and you didn't have enough money to get more: Never True Transportation Answer Date Recorded In the past 12 months, has l ack of transportation kept you from medical appts, meetings, work or from getting things needed for daily living? No 09/20/2023 Utilities Answer Date Recorded In the past 12 months, has t he electric, gas, oil or water company threatened to shut off services in your home? No 09/20/2023 Depression Answer Date Recorded Patient Health Questionnaire-2 Score 6 11/22/2023 Sex and Gender Information Value Date Recorded Sex Assigned at Male 09/27/2022 10:15 AM EDT Legal Sex Male 10:15 AM EDT Gender Identity Male 09/27/2022 10:15 AM EDT Sexual Orientation Straight 09/27/2022 10 :15 AM EDT documented as of this encounter Plan of Treatment Not on file documented as of this encounter Visit Diagnoses Not on filedocumented in this encounter Additional Health Concerns Assessment Noted Time PHQ-9 Depression Total Score: 10 023 10:48 AM EST documented as of this encounter Care Teams Medication Specialist Relationship Specialty Start Date End Date Shyann Redman MD [address] [place] [id number] PCP - General Family Medicine 08/18/23 documented as of this encounter
[2025-04-25 13:31] LABS: MANUAL DIFF FLAG NO
[2025-04-25 13:43] LABS: Basophils Percent Auto 0.4 % (0-2); Eosinophils Absolute Auto 0.1 X10*3/uL (0.0-0.4); Eosinophils Percent Auto 1.8 % (0-4); Hematocrit 41.5 % (42.0-52.0); Hemoglobin 13.9 g/dl (14.0-18.0); Imm Gran Abs Auto 0.01 X10*3/uL (0.00-0.03); Imm Gran Pct Auto 0.2 % (0.0-0.4); Lymphocytes Absolute Auto 1.6 X10*3/uL (1.2-4.9); Lymphocytes Percent Auto 29.6 % (20-40); Mean Corpuscular HGB Conc 33.5 g/dl (31.0-36.0); Mean Corpuscular Hemoglobin 29.8 pg (27.0-33.0); Mean Corpuscular Volume 88.9 fL (80.0-98.0); Mean Platelet Volume 11.1 fL (9.4-12.4); Monocytes Absolute Auto 0.7 X10*3/uL (0.1-1.2); Monocytes Percent Auto 12.3 % (2-11); Neutrophils Percent Auto 55.7 % (45-73); Platelet Count 227 X10*3/uL (160-400); Red Blood Count 4.67 X10*6/uL (4.60-5.80); Red Cell Distribution Width 13.2 % (11.0-16.0); White Blood Count 5.4 X10*3/uL (4.8-10.8)
[2025-04-25 14:30] LABS: Alanine Aminotransferase 11 U/L (0-40); Albumin Level 4.9 g/dL (3.5-5.0); Anion Gap 10 (12-20); Aspartate Amino Transferase 16 U/L (5-37); Bilirubin Total 0.4 mg/dL (0.0-1.0); Blood Urea Nitrogen 21 mg/dL (9-16); Calcium 9.4 mg/dL (8.4-10.2); Carbon Dioxide 26 mmol/L (22-29); Chloride 107 mmol/L (96-108); Estimated Glomerular Filt Rate > 60; Glucose Random 68 mg/dL (60-115); Potassium 3.4 mmol/L (3.3-5.1); Sodium 140 mmol/L (135-145); Total Protein 7.4 g/dL (6.5-8.0)
[2025-04-25 14:32] LABS: Alkaline Phosphatase 38 U/L (39-117)
[2025-04-25 14:42] LABS: TSH reflex Free T4 2.57 uIU/mL (0.32-4.0); Vitamin D 25-OH Total 11.1 ng/mL (>30)
[2025-04-25 14:53] LABS: Folate 10.3 ng/mL (> or = 4.0); Vitamin B12 645 pg/mL (200-900)
[2025-04-25 23:35] LABS: CT PCR NOT DETECTED (Not Detect.); NG PCR NOT DETECTED (Not Detect.)
[2025-04-26 08:10] LABS: Syphilis Screen Nonreactive (Nonreactive)
[2025-04-26 08:30] LABS: HBsAGNum1 0.27 S/CO (0.00-0.99); HIV AB/AG Nonreactive (Nonreactive); HIV Num 1 0.06 S/CO (0.00-0.99); Hepatitis B Surface Antigen Negative (Negative); ~HepC Num1 0.16 S/CO (0.00-0.79); ~Hepatitis C Antibody Nonreactive (Nonreactive)
== END 2025-04-25 12:36 | disposition home or self-care (01) ==
LOC: HO.HHCL 12:35
PROVIDERS: Visit Provider Family Medicine
DX: Z11.3 Encounter for screening for infections with a predominantly sexual mode of transmission (principal); E55.9 Vitamin D deficiency, unspecified; R63.8 Other symptoms and signs concerning food and fluid intake; R43.2 Parageusia
CPT/HCPCS: 80053; 82306; 82607; 82746; 84443; 85025; 86780; 86803; 87340; 87389; 87491; 87591